=== PATIENT | male | born 1970 ===

== ENCOUNTER 2022-11-29 10:35 | Inpatient (IN) | payer BC, MEDICAID ==
[2022-11-29] MEDS ORDERED: Sodium Chloride 0.9% 10 ML Syringe FLUSH PRN (11:16)
[2022-11-29] MEDS ORDERED: Metoprolol Tartrate 5 MG/5 ML SDV IVPUSH ONE (11:18)
[2022-11-29] MEDS ORDERED: Sodium Chloride 0.9% 1,000 ML IV SCH (11:30)
[2022-11-29 11:35] LABS: BASOPHILS ABSOLUTE AUTO 0.04 10^3/uL (0.00-0.50); BASOPHILS PERCENT AUTO 0.5 % (0-1); EOSINOPHILS ABSOLUTE AUTO 0.06 10^3/uL (0.00-1.50); EOSINOPHILS PERCENT AUTO 0.8 % (0-6); HEMATOCRIT 51.5 % (42.0-52.0); HEMOGLOBIN 17.4 g/dL (14.0-18.0); IMMATURE GRAN ABSOLUTE AUTO 0.01 10^3/uL (0.00-0.49); IMMATURE GRAN PERCENT AUTO 0.1 % (0.0-4.9); LYMPHOCYTES ABSOLUTE AUTO 1.19 10^3/uL (0.60-5.00); LYMPHOCYTES PERCENT AUTO 15.7 % (24-44); MEAN CORPUSCULAR HEMOGLOBIN 28.4 pg (27.0-32.0); MEAN CORPUSCULAR HGB CONC 33.8 g/dL (32.0-36.0); MEAN CORPUSCULAR VOLUME 84.2 fL (83.0-97.0); MONOCYTES PERCENT AUTO 6.6 % (0-10); NEUTROPHILS ABSOLUTE AUTO 5.79 x10^3/uL (1.80-8.00); NEUTROPHILS PERCENT AUTO 76.3 % (41-71); PLATELET COUNT,PLT 159 10^3/uL (150-400); RED BLOOD CELL COUNT 6.12 x10^6/uL (4.50-6.00); WHITE BLOOD CELL COUNT,WBC 7.6 10^3/uL (4.0-11.0)
[2022-11-29 11:50] LABS: ALBUMIN 3.5 g/dL (3.4-5.0); BILIRUBIN TOTAL 1.3 mg/dL (0.0-1.0); CALCIUM 8.9 mg/dL (8.4-10.1); CREATININE 1.5 mg/dL (0.7-1.3); EST CRCL DRUG DOSING (CG) 58.13 mL/min; POTASSIUM,K 3.8 mEq/L (3.5-5.0); PROTEIN TOTAL,TP 6.4 g/dL (6.4-8.2)
[2022-11-29 11:51] LABS: MAGNESIUM 1.7 mg/dL (1.8-2.4)
[2022-11-29] MEDS ORDERED: Furosemide 40 MG/4 ML VIAL IVPUSH ONE (12:01)
[2022-11-29 12:03] LABS: INR 1.23 (0.92-1.18); PROTHROMBIN TIME 12.6 SEC (9.3-11.3); PTT,PARTIAL THROMBOPLSTIN TIME 27.2 SEC (20.0-30.0)
[2022-11-29 12:55] LABS: APPEARANCE,URINE CLEAR (CLEAR); BILIRUBIN,URINE NEGATIVE (NEGATIVE); COLOR,URINE DARK YELLOW (YELLOW); GLUCOSE,URINE NEGATIVE (NEGATIVE); KETONES,URINE NEGATIVE (NEGATIVE); LEUKOCYTE ESTERASE,URINE NEGATIVE (NEGATIVE); NITRITE,URINE NEGATIVE (NEGATIVE); OCCULT BLOOD,URINE NEGATIVE (NEGATIVE); PH,URINE 5.5 (4.5-8.0); PROTEIN,URINE 100 mg/dL (NEGATIVE)
[2022-11-29 13:01] LABS: BACTERIA,URINE OCCASIONAL /HPF (NOT SEEN); RBC,URINE 0-5 /HPF (0-5); SQUAMOUS EPITHELIAL CELLS,UR NOT SEEN /HPF (NOT SEEN); WBC,URINE 0-5 /HPF (0-5)
[2022-11-29] MEDS ORDERED: Ondansetron 4 MG/2 ML SDV IV PRN (13:45)
[2022-11-29] MEDS ORDERED: Acetaminophen 325 MG Tab PO PRN (13:45)
[2022-11-29] MEDS ORDERED: Polyethylene Glycol 3350 Powder 17 GM Packet PO PRN (13:45)
[2022-11-29] MEDS ORDERED: Docusate Sodium 100 MG Cap PO PRN (13:45)
[2022-11-29] MEDS: Furosemide 20 MG/2 ML VIAL IVPUSH SCH (15:50)
[2022-11-29] MEDS: Carvedilol 3.125 MG Tab PO SCH (17:18)
[2022-11-29] MEDS: Potassium Chloride 10 MEQ Tab.ER PO SCH (17:18)
[2022-11-29] MEDS ORDERED: Apixaban 5 MG Tab PO SCH (20:45)
[2022-11-29] MEDS: Apixaban 5 MG Tab PO SCH (20:47)
[2022-11-30 07:42] LABS: BASOPHILS ABSOLUTE AUTO 0.04 10^3/uL (0.00-0.50); BASOPHILS PERCENT AUTO 0.5 % (0-1); EOSINOPHILS PERCENT AUTO 1.3 % (0-6); HEMATOCRIT 49.7 % (42.0-52.0); HEMOGLOBIN 16.8 g/dL (14.0-18.0); IMMATURE GRAN ABSOLUTE AUTO 0.01 10^3/uL (0.00-0.49); IMMATURE GRAN PERCENT AUTO 0.1 % (0.0-4.9); LYMPHOCYTES ABSOLUTE AUTO 1.22 10^3/uL (0.60-5.00); LYMPHOCYTES PERCENT AUTO 16.2 % (24-44); MEAN CORPUSCULAR HEMOGLOBIN 28.4 pg (27.0-32.0); MEAN CORPUSCULAR HGB CONC 33.8 g/dL (32.0-36.0); MONOCYTES ABSOLUTE AUTO 0.52 10^3/uL (0.00-1.50); MONOCYTES PERCENT AUTO 6.9 % (0-10); NEUTROPHILS ABSOLUTE AUTO 5.64 x10^3/uL (1.80-8.00); PLATELET COUNT,PLT 157 10^3/uL (150-400); RED BLOOD CELL COUNT 5.92 x10^6/uL (4.50-6.00); WHITE BLOOD CELL COUNT,WBC 7.5 10^3/uL (4.0-11.0)
[2022-11-30] MEDS: Furosemide 20 MG/2 ML VIAL IVPUSH SCH ×2 (07:47→15:40)
[2022-11-30] MEDS: Lisinopril 10 MG Tab PO SCH (07:48)
[2022-11-30] MEDS: Hydrochlorothiazide 12.5 MG Cap PO SCH (07:48)
[2022-11-30] MEDS: Potassium Chloride 10 MEQ Tab.ER PO SCH ×2 (07:48→17:16)
[2022-11-30] MEDS: Apixaban 5 MG Tab PO SCH ×2 (07:48→19:31)
[2022-11-30 07:55] LABS: ALBUMIN 3.3 g/dL (3.4-5.0); BILIRUBIN TOTAL 1.4 mg/dL (0.0-1.0); CREATININE 1.6 mg/dL (0.7-1.3); EST CRCL DRUG DOSING (CG) 54.5 mL/min; POTASSIUM,K 3.8 mEq/L (3.5-5.0); PROTEIN TOTAL,TP 6.1 g/dL (6.4-8.2)
[2022-11-30] MEDS ORDERED: Enoxaparin 40 MG/0.4 ML Syringe SUBCUT SCH (08:00)
[2022-11-30] MEDS: Carvedilol 3.125 MG Tab PO SCH ×2 (08:08→17:16)
[2022-12-01 07:18] LABS: BASOPHILS ABSOLUTE AUTO 0.05 10^3/uL (0.00-0.50); BASOPHILS PERCENT AUTO 0.6 % (0-1); EOSINOPHILS ABSOLUTE AUTO 0.17 10^3/uL (0.00-1.50); EOSINOPHILS PERCENT AUTO 2.2 % (0-6); HEMATOCRIT 50.6 % (42.0-52.0); HEMOGLOBIN 16.9 g/dL (14.0-18.0); IMMATURE GRAN ABSOLUTE AUTO 0.02 10^3/uL (0.00-0.49); IMMATURE GRAN PERCENT AUTO 0.3 % (0.0-4.9); LYMPHOCYTES ABSOLUTE AUTO 1.56 10^3/uL (0.60-5.00); LYMPHOCYTES PERCENT AUTO 19.9 % (24-44); MEAN CORPUSCULAR HEMOGLOBIN 28.5 pg (27.0-32.0); MEAN CORPUSCULAR HGB CONC 33.4 g/dL (32.0-36.0); MEAN CORPUSCULAR VOLUME 85.3 fL (83.0-97.0); MONOCYTES ABSOLUTE AUTO 0.52 10^3/uL (0.00-1.50); MONOCYTES PERCENT AUTO 6.6 % (0-10); NEUTROPHILS PERCENT AUTO 70.4 % (41-71); PLATELET COUNT,PLT 156 10^3/uL (150-400); RED BLOOD CELL COUNT 5.93 x10^6/uL (4.50-6.00); WHITE BLOOD CELL COUNT,WBC 7.8 10^3/uL (4.0-11.0)
[2022-12-01] MEDS: Hydrochlorothiazide 12.5 MG Cap PO SCH (07:41)
[2022-12-01] MEDS: Apixaban 5 MG Tab PO SCH ×2 (07:41→19:19)
[2022-12-01] MEDS: Potassium Chloride 10 MEQ Tab.ER PO SCH ×2 (07:42→17:10)
[2022-12-01] MEDS: Lisinopril 10 MG Tab PO SCH (07:42)
[2022-12-01] MEDS: Carvedilol 3.125 MG Tab PO SCH ×2 (07:43→17:10)
[2022-12-01] MEDS: Furosemide 20 MG/2 ML VIAL IVPUSH SCH ×2 (07:44→16:03)
[2022-12-01 07:58] LABS: ALBUMIN 3.3 g/dL (3.4-5.0); BILIRUBIN TOTAL 0.8 mg/dL (0.0-1.0); CALCIUM 8.7 mg/dL (8.4-10.1); CREATININE 1.6 mg/dL (0.7-1.3); EST CRCL DRUG DOSING (CG) 54.5 mL/min; POTASSIUM,K 3.5 mEq/L (3.5-5.0); PROTEIN TOTAL,TP 6.3 g/dL (6.4-8.2); TSH ULTRASENSITIVE 1.09 uIU/mL (0.36-5.60)
[2022-12-01] MEDS ORDERED: Lisinopril 20 MG Tab PO STA (10:26)
[2022-12-02 07:02] LABS: BASOPHILS ABSOLUTE AUTO 0.04 10^3/uL (0.00-0.50); BASOPHILS PERCENT AUTO 0.5 % (0-1); EOSINOPHILS ABSOLUTE AUTO 0.17 10^3/uL (0.00-1.50); EOSINOPHILS PERCENT AUTO 2.2 % (0-6); HEMOGLOBIN 16.8 g/dL (14.0-18.0); IMMATURE GRAN ABSOLUTE AUTO 0.02 10^3/uL (0.00-0.49); IMMATURE GRAN PERCENT AUTO 0.3 % (0.0-4.9); LYMPHOCYTES ABSOLUTE AUTO 1.36 10^3/uL (0.60-5.00); LYMPHOCYTES PERCENT AUTO 17.8 % (24-44); MEAN CORPUSCULAR HEMOGLOBIN 28.3 pg (27.0-32.0); MEAN CORPUSCULAR HGB CONC 33.6 g/dL (32.0-36.0); MEAN CORPUSCULAR VOLUME 84.2 fL (83.0-97.0); MONOCYTES ABSOLUTE AUTO 0.49 10^3/uL (0.00-1.50); MONOCYTES PERCENT AUTO 6.4 % (0-10); NEUTROPHILS ABSOLUTE AUTO 5.56 x10^3/uL (1.80-8.00); NEUTROPHILS PERCENT AUTO 72.8 % (41-71); PLATELET COUNT,PLT 166 10^3/uL (150-400); RED BLOOD CELL COUNT 5.94 x10^6/uL (4.50-6.00); WHITE BLOOD CELL COUNT,WBC 7.6 10^3/uL (4.0-11.0)
[2022-12-02] MEDS: Hydrochlorothiazide 12.5 MG Cap PO SCH (07:22)
[2022-12-02] MEDS: Apixaban 5 MG Tab PO SCH (07:22)
[2022-12-02] MEDS: Potassium Chloride 10 MEQ Tab.ER PO SCH (07:23)
[2022-12-02 07:24] LABS: ALBUMIN 3.2 g/dL (3.4-5.0); BILIRUBIN TOTAL 0.8 mg/dL (0.0-1.0); CALCIUM 8.6 mg/dL (8.4-10.1); CREATININE 1.4 mg/dL (0.7-1.3); EST CRCL DRUG DOSING (CG) 62.28 mL/min; PROTEIN TOTAL,TP 6.1 g/dL (6.4-8.2)
[2022-12-02] MEDS: Carvedilol 3.125 MG Tab PO SCH (07:25)
[2022-12-02] MEDS ORDERED: Furosemide 20 MG Tab PO SCH (08:00)
[2022-12-02] MEDS ORDERED: Lisinopril 20 MG Tab PO SCH (08:00)
[2022-12-02] MEDS ORDERED: Lisinopril 10 MG Tab PO SCH (08:00)
== END 2022-12-02 11:38 | disposition home or self-care (01) | DRG 293 ==
LOC: CC.ED 10:35 → UNDOADMIN 12:15 → CC.MS 12:15
PROVIDERS: ADMIT Nurse Practitioner Family; ATTEND Nurse Practitioner Family
DX: I11.0 Hypertensive heart disease with heart failure (principal); I48.91 Unspecified atrial fibrillation; I50.9 Heart failure, unspecified; G47.30 Sleep apnea, unspecified; N28.9 Disorder of kidney and ureter, unspecified; I08.1 Rheumatic disorders of both mitral and tricuspid valves; I77.810 Thoracic aortic ectasia; Z79.899 Other long term (current) drug therapy; Z87.891 Personal history of nicotine dependence
CPT/HCPCS: 36415; 71046; 80053; 81001; 82150; 83690; 83735; 83880; 84443; 84484; 85025; 85610; 85730; 93005; 93010; 93306; 96361; 96374; 96375; 99223; 99232; 99233; 99239; 99284-25; A9270-GY; J1940; J3490; J7030